=== PATIENT | male | born 1940 | race Caucasian/White ===

== ENCOUNTER 2019-01-28 18:32 | Emergency (ER) | payer MEDICARE ==
[2019-01-28 18:35] VITALS: BP 166/89
[2019-01-28] MEDS ORDERED: DOXYcycline CAP(*) 100 MG PO ONE (18:42)
--- NOTE | 2019-01-28 18:44 | ED ---
Bite Injury/Animal - HPI Summary HPI Summary: 78-year-old male presents with tick removed from the right hip today. He states he is here for doxycycline prophylaxis. States the tick was on his body for over 24 hours. Tick was removed with tick twister. He has history of A. fib and hypertension. He denies any allergies to doxycycline. - History of Current Complaint Chief Complaint: EDAnimalBite Stated Complaint: TICK BITE PER PT Time Seen by Provider: 01/28/19 18:36 Pain Intensity: 0 - Allergies/Home Medications Allergies/Adverse Reactions: Allergies Allergy/AdvReac Type Severity Reaction Status Date / Time MS Sulfa Antibiotics Allergy Fever Verified 05/29/14 15:48 [Sulfa Antibiotics] PMH/Surg Hx/FS Hx/Imm Hx Endocrine/Hematology History: Denies: Hx Diabetes, Hx Thyroid Disease Cardiovascular History: Reports: Hx Atrial Fibrillation, Hx Hypertension Respiratory History: Reports: Hx Sleep Apnea Denies: Hx Asthma, Hx Chronic Obstructive Pulmonary Disease (COPD) GI History: Denies: Hx Ulcer Infectious Disease History: No Infectious Disease History: Denies: Hx Hepatitis, Hx Human Immunodeficiency Virus (HIV), Traveled Outside the in Last 30 Days - Family History Known Family History: Positive: Non-Contributory - Social History Alcohol Use: None Substance Use Type: Reports: None Smoking Status (MU): Never Smoked Tobacco Review of Systems Negative: Fever Negative: Chest Pain Negative: Shortness Of Breath Positive: Other - tick bite right hip All Other Systems Reviewed And Are Negative: Yes Physical Exam Triage Information Reviewed: Yes Vital Signs On Initial Exam: Initial Vitals Temp Pulse Resp BP Pulse Ox 96.9 F 59 18 166/89 100 01/28/19 18:33 01/28/19 18:33 01/28/19 18:33 01/28/19 18:33 01/28/19 18:33 Vital Signs Reviewed: Yes Appearance: Positive: Well-Appearing Skin: Positive: Warm, Dry, Other - erthyema to right hip consistent with tick bite Head/Face: Positive: Normal Head/Face Inspection Eyes: Positive: Normal, Conjunctiva Clear ENT: Positive: Pharynx normal Respiratory/Lung Sounds: Positive: Clear to Auscultation, Breath Sounds Present Cardiovascular: Positive: Normal, RRR Musculoskeletal: Positive: Normal Neurological: Positive: Normal Psychiatric: Positive: Normal Diagnostics - Vital Signs Vital Signs Temp Pulse Resp BP Pulse Ox 01/28/19 18:33 96.9 F 59 18 166/89 100 - Laboratory Lab Statement: Any lab studies that have been ordered have been reviewed, and results considered in the medical decision making process. Bite Injury Course/Dx - Course Course Of Treatment: 78-year-old male presents with tick removed from the right hip today. He states he is here for doxycycline prophylaxis. States the tick was on his body for over 24 hours. Tick was removed with tick twister. He has history of A. fib and hypertension. He denies any allergies to doxycycline. On exam has erythematous rash to right hip consistent with tick bite. Patient showed tick and appears to be a deer tick. Gave a dose of doxycycline. told if develop rash to return. Patient understands agrees with plan. - Diagnoses Differential Diagnosis/HQI/PQRI: Positive: Cellulitis, Other - lyme, tick bite Provider Diagnosis: Tick bite Discharge - Sign-Out/Discharge Documenting (check all that apply): Patient Departure Patient Received Moderate/Deep Sedation with Procedure: No - Discharge Plan Condition: Good Disposition: HOME Patient Education Materials: Tick Bite (ED) Referrals: Aby Crandall MD [Primary Care Provider] - Additional Instructions: You have been prophylactically treated for Lyme disease Return to ED if develop any rash or signs of infection - Billing Disposition and Condition Condition: GOOD Disposition: Home
== END 2019-01-28 19:18 | disposition home or self-care (01) ==
LOC: ED 18:32
DX: S70.261A Insect bite (nonvenomous), right hip, initial encounter (principal); W57.XXXA Bitten or stung by nonvenomous insect and other nonvenomous arthropods, initial encounter; I10 Essential (primary) hypertension; I48.91 Unspecified atrial fibrillation; Z88.2 Allergy status to sulfonamides
CPT/HCPCS: 99282; A9270-GY